=== PATIENT | female | born 1995 | race Caucasian/White ===

== ENCOUNTER 2022-06-04 09:05 | Day surgery (SDC) | payer OTHER ==
[2022-06-02 13:15] LABS: BASOPHILS ABSOLUTE AUTO 0.03 K/mm3 (0.00-0.23); BASOPHILS PERCENT AUTO 0 % (0-2); EOSINOPHILS ABSOLUTE AUTO 0.15 K/mm3 (0.00-0.68); EOSINOPHILS PERCENT AUTO 2 % (0-6); Hematocrit 31.5 % (33.0-51.0); Hemoglobin 9.9 g/dL (11.5-16.0); IMMATURE GRAN ABSOLUTE AUTO 0.01 K/mm3 (0.00-0.10); IMMATURE GRAN PERCENT AUTO 0 % (0-1); LYMPHOCYTES ABSOLUTE AUTO 2.64 K/mm3 (0.84-5.20); LYMPHOCYTES PERCENT AUTO 35 % (21-46); MONOCYTES PERCENT AUTO 5 % (4-13); Mean Corpuscular HGB 22.8 pg (26.0-34.0); Mean Corpuscular HGB Conc 31.4 g/dL (31.5-36.5); Mean Corpuscular Volume 72 fL (80-100); Mean Platelet Volume 9.5 fL (9.1-12.4); NEUTROPHILS PERCENT AUTO 57 % (41-73); Platelet Count 408 K/mm3 (150-400); RDW Standard Deviation 44.4 fL (35.1-46.3); Red Blood Cell Count 4.35 M/mm3 (3.80-5.20); White Blood Cell Count 7.53 K/mm3 (4.00-11.30)
[2022-06-02 14:04] LABS: Bun/Creatinine Ratio 15.6 (12.0-20.0); Calcium, Blood 8.9 mg/dL (8.5-10.1); Creatinine, Blood 0.7 mg/dL (0.40-1.00); Potassium, Blood 3.7 mmol/L (3.5-5.5)
[~2022-06-04] VITALS: Ht 160 cm; Wt 96.6 kg
--- NOTE | 2022-06-04 19:02 | NUR ---
DISCHARGE SUMMARY PT S/P FOR TOTAL LAP HYSTER. PT VOIDING, TOLERATING PO, AND PAIN IS TOLERABLE. PT HAD SOME NAUSEA BUT RESOLVED WITH MEDICATION. VSS. PT TO DC HOME WITH . PT PICKED UP NEW MEDICATIONS BEFORE BEING ADMITTED AND HAS THEM AT HOME.
== END 2022-06-04 19:42 | disposition home or self-care (01) ==
LOC: ORSCMMR 09:05 → ORD 10:45 → SURS 14:49 → ORSCMMR 19:42 → ORD 06-25 10:15
PROVIDERS: Obstetrics & Gynecology
PROC: 0UT74ZZ Resection of Bilateral Fallopian Tubes, Percutaneous Endoscopic Approach (ICD-10-PCS; principal; 2022-06-04 10:45)
PROC: 0UT94ZZ Resection of Uterus, Percutaneous Endoscopic Approach (ICD-10-PCS; principal; 2022-06-04 10:45)
DX: N92.0 Excessive and frequent menstruation with regular cycle (principal); N80.00 Endometriosis of the uterus, unspecified; N94.10 Unspecified dyspareunia; R10.2 Pelvic and perineal pain; K21.9 Gastro-esophageal reflux disease without esophagitis; E28.2 Polycystic ovarian syndrome; F43.10 Post-traumatic stress disorder, unspecified; F41.9 Anxiety disorder, unspecified; E66.9 Obesity, unspecified; Z68.37 Body mass index [BMI] 37.0-37.9, adult
CPT/HCPCS: 58571; S2900; 36415; 80048; 84703; 85025; 86850; 86900; 86901; 88307; A9270; J0690; J1100; J1885; J2250; J2370; J2405; J2704; J2795; J3010; J7120